=== PATIENT | female | born 1980 | race Caucasian/White ===

== ENCOUNTER 2024-04-30 09:36 | Inpatient (IN) | payer MEDICAID ==
[~2024-04-30] VITALS: Ht 157.5 cm; Wt 95.3 kg
[2024-04-30] MEDS ORDERED: FOLIC ACID 1 MG, THIAMINE HCL 100 MG, MAGNESIUM SULFATE 1 GM, MVI 10 ML in NACL 0.9% 1,... IV ONE (09:45)
[2024-04-30 09:50] VITALS: BP_SYST 130; PULSE 80; RESP 19; TEMP 97.8; O2SAT 97
[2024-04-30 10:13] LABS: BASOPHILS % (AUTO) 0.4 % (0.0-2.0); EOSINOPHILS % (AUTO) 0.2 % (0.0-4.0); HEMATOCRIT 39.5 % (36-48); HEMOGLOBIN 13.4 g/dL (12.0-16.0); LYMPHOCYTES # (AUTO) 1.2 K/uL (1.0-5.5); LYMPHOCYTES % (AUTO) 11.7 % (20.5-51.5); MEAN CORPUSCULAR HEMOGLOBIN 31 pg (27-31); MEAN CORPUSCULAR HGB CONC 34 % (32-36); MEAN CORPUSCULAR VOLUME 91 fL (79.0-98.0); MONOCYTES # (AUTO) 0.4 K/uL (0.0-1.0); MONOCYTES % (AUTO) 4.3 % (1.7-9.3); NEUTROPHILS # (AUTO) 8.4 K/uL (1.8-7.7); NEUTROPHILS % (AUTO) 83.4 % (40.0-70.0); PLATELET COUNT (AUTO) 257 K/uL (130-430); RED BLOOD CELL COUNT(AUTO) 4.32 MIL/uL (4.2-6.2); RED CELL DISTRIBUTION WIDTH 20.8 % (9.0-15.0); WHITE BLOOD COUNT (AUTO) 10.1 K/uL (4.8-10.8)
[2024-04-30] MEDS: LORazepam 2 MG/ML VIAL IVP ONE ×2 (10:25→12:59)
[2024-04-30 10:39] LABS: ALANINE AMINOTRANSFERASE 62 U/L (12-78); ALBUMIN 3.2 g/dL (3.4-4.8); ANION GAP 10 (5-15); ASPARTATE AMINOTRANSFERASE 171 U/L (10-37); BILIRUBIN,DIRECT 0.5 mg/dL (0.0-0.3); CALCIUM 8.6 mg/dL (8.4-11.0); CARBON DIOXIDE 26 mmol/L (23-29); CHLORIDE 103 mmol/L (98-107); CREATININE 0.99 mg/dL (0.55-1.30); GFR AFRICAN AMERICAN 78 mL/min (>90); GLUCOSE 137 mg/dL (74-106); LIPASE 21 U/L (16-77); POTASSIUM 3.7 mmol/L (3.5-5.1); SODIUM SERUM 139 mmol/L (136-145); TOTAL BILIRUBIN 0.8 mg/dL (0.0-1.0); TOTAL PROTEIN, SERUM 6.7 g/dL (6.4-8.3); UREA NITROGEN, BLOOD 8 mg/dL (8-21)
[2024-04-30 10:46] LABS: ALCOHOL, BLOOD < 3 mg/dL (<10); GFR NON AFRICAN-AMERICAN 65 mL/min (>90)
[2024-04-30 10:48] LABS: PROTHROMBIN TIME 10.4 SECS (9.5-12.5)
[2024-04-30] MEDS: FOLIC ACID 1 MG, MVI 10 ML in NACL 0.9% 1,000 ML IV ONE (11:00)
[2024-04-30] MEDS: THIAMINE HCL 100 MG, MAGNESIUM SULFATE 1 GM in NS 100 ML IV ONE (11:01)
[2024-04-30] MEDS ORDERED: HYDR-500 PO (11:05)
[2024-04-30] MEDS ORDERED: BUPR-48 PO (11:05)
[2024-04-30] MEDS ORDERED: LEVO25TA7 PO (11:05)
[2024-04-30] MEDS ORDERED: METO50TA16 PO (11:05)
[2024-04-30] MEDS ORDERED: ARIP20TA63 PO (11:05)
[2024-04-30 16:29] VITALS: BP_SYST 152; PULSE 104; RESP 16; TEMP 97.3; O2SAT 99
[2024-04-30] MEDS: LORazepam 2 MG/ML VIAL IVP PRN (17:41)
[2024-04-30 20:00] VITALS: BP_SYST 154; PULSE 100; RESP 18; TEMP 98; O2SAT 97; O2SAT 98
[2024-05-01] VITALS: BP_SYST 144; PULSE 98; RESP 18; TEMP 98; O2SAT 98
[2024-05-01 08:00] VITALS: BP_SYST 165; PULSE 111; RESP 16; TEMP 97.7; O2SAT 100; O2SAT 98
[2024-05-01 11:05] VITALS: BP_SYST 161; PULSE 91; RESP 16; TEMP 98.6; O2SAT 98
[2024-05-01] MEDS: hydrALAZINE HCL 25 MG TABLET PO PRN (11:39)
[2024-05-01] MEDS ORDERED: HYDROcodone/ACETAMIN 10-325 MG TAB PO PRN (12:15)
[2024-05-01] MEDS ORDERED: NALOXONE HCL 0.4 MG/ML AMP (NARCAN) IVP PRN ×2 (12:15)
[2024-05-01] MEDS ORDERED: ACETAMINOPHEN 325 MG TABLET PO PRN (12:15)
[2024-05-01] MEDS ORDERED: ONDANSETRON HCL 4 MG/2 ML VIAL IVP PRN (12:15)
[2024-05-01 13:01] LABS: BASOPHILS % (AUTO) 0.8 % (0.0-2.0); EOSINOPHILS # (AUTO) 0.1 K/uL (0.0-0.4); EOSINOPHILS % (AUTO) 1.4 % (0.0-4.0); HEMATOCRIT 37.9 % (36-48); HEMOGLOBIN 13.2 g/dL (12.0-16.0); LYMPHOCYTES # (AUTO) 1.5 K/uL (1.0-5.5); LYMPHOCYTES % (AUTO) 29.9 % (20.5-51.5); MEAN CORPUSCULAR HEMOGLOBIN 32 pg (27-31); MEAN CORPUSCULAR HGB CONC 35 % (32-36); MEAN CORPUSCULAR VOLUME 91 fL (79.0-98.0); MONOCYTES # (AUTO) 0.3 K/uL (0.0-1.0); MONOCYTES % (AUTO) 5.7 % (1.7-9.3); NEUTROPHILS # (AUTO) 3.2 K/uL (1.8-7.7); NEUTROPHILS % (AUTO) 62.2 % (40.0-70.0); PLATELET COUNT (AUTO) 202 K/uL (130-430); RED BLOOD CELL COUNT(AUTO) 4.18 MIL/uL (4.2-6.2); RED CELL DISTRIBUTION WIDTH 20.8 % (9.0-15.0)
[2024-05-01 13:04] LABS: WHITE BLOOD COUNT (AUTO) 5.1 K/uL (4.8-10.8)
[2024-05-01 13:13] LABS: CALCIUM 8.3 mg/dL (8.4-11.0); CREATININE 0.71 mg/dL (0.55-1.30); POTASSIUM 3.3 mmol/L (3.5-5.1)
[2024-05-01] MEDS: NORMAL SALINE 5 ML DISP.SYRIN IVF SCH (14:00)
[2024-05-01 16:03] VITALS: BP_SYST 156; PULSE 90; RESP 16; TEMP 98.3; O2SAT 98
[2024-05-01] MEDS: FOLIC ACID 1 MG TABLET PO ONE (16:51)
[2024-05-01] MEDS: MULTIVITS,CA,MINERALS/IRON/FA 1 TABLET PO ONE (16:52)
[2024-05-01] MEDS: LEVOTHYROXINE SODIUM 0.025 MG TABLET PO ONE (16:52)
[2024-05-01] MEDS: THIAMINE HCL 100 MG TABLET PO ONE (16:52)
[2024-05-01] MEDS: LORazepam 2 MG/ML VIAL IVP PRN (16:53)
[2024-05-01] MEDS: METOPROLOL TARTRATE 50 MG TABLET PO ONE (16:53)
[2024-05-01] MEDS: ARIPiprazole 5 MG TAB PO ONE (16:54)
[2024-05-01] MEDS: buPROPion HCL 150 MG XL TAB PO ONE (17:00)
[2024-05-01 20:00] VITALS: BP_SYST 146; PULSE 92; RESP 16; TEMP 97.5; O2SAT 95
[2024-05-02] MEDS: HYDROcodone/ACETAMIN 5-325 MG TAB (NORCO/ VICODIN) PO PRN (00:37)
[2024-05-02 00:41] VITALS: BP_SYST 143; PULSE 92; RESP 14; TEMP 97.6; O2SAT 97
[2024-05-02] MEDS: ACETAMINOPHEN 325 MG TABLET PO PRN (05:49)
[2024-05-02 06:57] LABS: CALCIUM 8.4 mg/dL (8.4-11.0); CREATININE 0.76 mg/dL (0.55-1.30); POTASSIUM 3.5 mmol/L (3.5-5.1)
[2024-05-02 07:26] LABS: BASOPHILS % (AUTO) 0.8 % (0.0-2.0); EOSINOPHILS # (AUTO) 0.1 K/uL (0.0-0.4); HEMATOCRIT 36.5 % (36-48); HEMOGLOBIN 12.6 g/dL (12.0-16.0); LYMPHOCYTES # (AUTO) 1.8 K/uL (1.0-5.5); LYMPHOCYTES % (AUTO) 35.9 % (20.5-51.5); MEAN CORPUSCULAR HEMOGLOBIN 32 pg (27-31); MEAN CORPUSCULAR HGB CONC 34 % (32-36); MEAN CORPUSCULAR VOLUME 92 fL (79.0-98.0); MONOCYTES # (AUTO) 0.4 K/uL (0.0-1.0); MONOCYTES % (AUTO) 7.7 % (1.7-9.3); NEUTROPHILS # (AUTO) 2.7 K/uL (1.8-7.7); NEUTROPHILS % (AUTO) 53.6 % (40.0-70.0); PLATELET COUNT (AUTO) 212 K/uL (130-430); RED BLOOD CELL COUNT(AUTO) 3.96 MIL/uL (4.2-6.2); RED CELL DISTRIBUTION WIDTH 20.8 % (9.0-15.0); WHITE BLOOD COUNT (AUTO) 5.1 K/uL (4.8-10.8)
[2024-05-02 08:10] VITALS: O2SAT 98
[2024-05-02 08:51] VITALS: BP_SYST 159; PULSE 82; RESP 16; TEMP 97.3; O2SAT 98
[2024-05-02] MEDS: THIAMINE HCL 100 MG TABLET PO SCH (09:11)
[2024-05-02] MEDS: ARIPiprazole 5 MG TAB PO SCH (09:11)
[2024-05-02] MEDS: LEVOTHYROXINE SODIUM 0.025 MG TABLET PO SCH (09:11)
[2024-05-02] MEDS: buPROPion HCL 150 MG XL TAB PO SCH (09:11)
[2024-05-02] MEDS: FOLIC ACID 1 MG TABLET PO SCH (09:12)
[2024-05-02] MEDS: HYDROCHLOROTHIAZIDE 25 MG TABLET (HCTZ) PO SCH (09:12)
[2024-05-02] MEDS: MULTIVITS,CA,MINERALS/IRON/FA 1 TABLET PO SCH (09:13)
[2024-05-02] MEDS: METOPROLOL TARTRATE 50 MG TABLET PO SCH (09:13)
[2024-05-02] MEDS ORDERED: CHLO10CA7 PO (11:08)
[2024-05-02] MEDS ORDERED: THIA100T70 PO (11:08)
[2024-05-02] MEDS ORDERED: HCT25 PO (11:08)
[2024-05-02] MEDS ORDERED: MULT-1117 PO (11:08)
[2024-05-02] MEDS ORDERED: FOLI-43 PO (11:08)
[2024-05-02 11:52] VITALS: BP_SYST 133; PULSE 68; RESP 18; TEMP 98; O2SAT 96
[2024-05-02 12:43] VITALS: BP_SYST 133; PULSE 68; RESP 17; TEMP 98; O2SAT 96
== END 2024-05-02 12:25 | disposition home or self-care (01) | DRG 199 ==
LOC: SED 09:36 → SMU 13:33
PROVIDERS: ADMIT Preventive Medicine Preventive Medicine/Occupational Environmental Medicine; ATTEND Preventive Medicine Preventive Medicine/Occupational Environmental Medicine
DX: I16.0 Hypertensive urgency (principal); E44.1 Mild protein-calorie malnutrition; E88.09 Other disorders of plasma-protein metabolism, not elsewhere classified; E03.9 Hypothyroidism, unspecified; Z20.822 Contact with and (suspected) exposure to COVID-19; F10.139 Alcohol abuse with withdrawal, unspecified; I10 Essential (primary) hypertension; Z79.899 Other long term (current) drug therapy; R74.01 Elevation of levels of liver transaminase levels; Z68.38 Body mass index [BMI] 38.0-38.9, adult
CPT/HCPCS: 36415; 80048; 80076; 83690; 85025; 85610; 85730; 93005; 96365; 96375; 99285; G0482; J2060; J3411; J3475; J3490; J7030